=== PATIENT | male | born 1945 | race Caucasian/White ===

== ENCOUNTER → 2017-08-08 | Day surgery (SDC) | payer MEDICARE, OTHER ==
[~2017-08-08] VITALS: Ht 182.9 cm; Wt 97.0 kg
[~2017-08-08] MED LIST: 0.9% Sodium Chloride 1,000 ML IV SCH; CHOL10008 PO; FUR20 PO; LATA2.5D6 OP; LEVO50TA83 PO; Sodium Chloride LOK Flush 10 mL Syringe IV PRN; TERA10CA5 PO; fentaNYL-PF 50 mCg/mL 2 mL Inj IVPUSH PRN
[2017-08-08 14:15] VITALS: BP 136/83; PULSE 72; RESP 16; O2SAT 95
[2017-08-08 15:31] VITALS: BP 112/75; PULSE 58; RESP 16; O2SAT 94
[2017-08-08 15:49] VITALS: BP 106/64; PULSE 57; RESP 16; O2SAT 96
--- NOTE | 2017-08-09 12:49 | ENDO ---
[address] [address] ENDOSCOPY PROCEDURE PATIENT: EDENILSON VÁSQUEZ : 1945 MR#: [id number] ADMIT: 08/08/2017 JOB ID: [id number] DATE: 08/08/2017 PRIMARY PROVIDER: Teri Maldonado M.D. PROCEDURE: Colonoscopy with cold forceps polypectomy and hot snare polypectomy. INDICATIONS: A 71-year-old male with a positive FIT evaluation. EQUIPMENT: [employer] 190. SEDATION: 1. 4 mg Versed. 2. 100 mcg fentanyl. COMPLICATIONS: None identified. Bowel prep fair, adequate examination. PROCEDURE IN DETAIL: After the risks and benefits were explained, written and verbal informed consent was obtained. The patient was brought into the endoscopy suite and placed into the left lateral decubitus position. Sedation was achieved using the above-stated medications with the addition of oxygen via nasal cannula. A digital rectal examination was accomplished. No significant pathology appreciated. Mild internal hemorrhoids. The scope was introduced into the rectum and advanced to the cecum as identified by the appendiceal orifice and ileocecal valve. The scope was slowly withdrawn to carefully examine the mucosa for any defects or lesions. Multiple direct views were made through the dentate line for exclusion of pathology. The colon was decompressed. The scope removed from the patient who tolerated the procedure well. FINDINGS: In the right colon, there was a very diminutive polyp removed with cold forceps and a slightly larger polyp, perhaps 5 or 6 mm, removed with hot snare. There was some diverticulosis in the left colon. In the rectum there was an approximately 5-6 mm polyp removed with hot snare. No proctitis. No colitis seen throughout. ENDOSCOPIC DIAGNOSES: 1. Mild hemorrhoids. 2. Diverticulosis. 3. Colon polyps. RECOMMENDATIONS: 1. Await histopathology. 2. Repeat colonoscopy three years.
--- NOTE | 2017-08-11 16:23 | PATH ---
SURGICAL PATHOLOGY Attending Physician:Kavin Bowman CASE STATUS: Signed Out PATIENT NAME: EDENILSON VÁSQUEZ PID: [id number] : 1945 DATE COLLECTED:08/08/2017 00:00 SPECIMEN: Colon, Polyp CLINICAL HISTORY: 1). COLON POLYPS X 3 FINAL DIAGNOSIS: Colon, Polyps x3, Biopsies: Tubular adenoma in 7 of 8 fragments. ICD10: D12.6 GROSS DESCRIPTION: The specimen is received in one formalin filled container labeled with the patient's name, sublabeled "colon polyps" and consists of multiple portions of tissue which aggregate to 0.5 x 0.5 x 0.4 CM. The specimen is entirely submitted in one cassette. 08/09/2017DC ICD-9 CODES: CPT CODES: 1: 32274 Electronically Signed Out Monica Kingsley MD [facility] [address], [place] [address] Technical component performed at [facility], [facility] [address], [address]
== END | disposition home or self-care (01) ==
LOC: END 01:18
PROVIDERS: ATTEND Internal Medicine Gastroenterology
DX: D12.2 Benign neoplasm of ascending colon (principal); D12.8 Benign neoplasm of rectum; K57.30 Diverticulosis of large intestine without perforation or abscess without bleeding; K64.9 Unspecified hemorrhoids; R19.5 Other fecal abnormalities; E03.9 Hypothyroidism, unspecified; N40.0 Benign prostatic hyperplasia without lower urinary tract symptoms; R60.0 Localized edema
CPT/HCPCS: 45380; 45385; 99153; G0500; J2250; J3010; J7030